=== PATIENT | male | born 1955 | race Caucasian/White ===

== ENCOUNTER 2024-12-06 12:58 | Inpatient (IN) | payer MEDICARE ==
[2024-12-06] MEDS: ONDANSETRON 4 MG/2 ML VIAL IVP STA (13:20)
--- NOTE | 2024-12-06 13:30 | ED ---
General Adult HPI - General Chief complaint: Chest Pain Stated complaint: Chest pain Time Seen by Provider: 12/06/24 13:00 Source: patient, EMS, RN notes reviewed, old records reviewed Mode of arrival: EMS Limitations: no limitations - History of Present Illness Initial comments: This is a 69-year-old male who presents to the emergency department with chest pain he describes it as pain in the center of his chest as a heavy pressure. Patient states it has been ongoing for about a half an hour. Patient states he called EMS when they arrived gave him nitroglycerin and took the pain away completely. Patient does not complain of any shortness of breath. Patient Nuys any fever chills or cough or Patient denies any radiation of the pain. Patient Nuys any nausea. Patient Nuys any risk factors. Patient currently only has a very slight pressure - Related Data Home Medications Medication Instructions Recorded Confirmed No Known Home Medications 12/06/24 12/06/24 Allergies Allergy/AdvReac Type Severity Reaction Status Date / Time No Known Allergies Allergy Verified 12/06/24 15:24 Review of Systems ROS Statement: Those systems with pertinent positive or pertinent negative responses have been documented in the HPI. ROS Other: All systems not noted in ROS Statement are negative. Past Medical History Past Medical History: No Reported History History of Any Multi-Drug Resistant Organisms: None Reported Past Surgical History: No Surgical Hx Reported Past Psychological History: No Psychological Hx Reported Smoking Status: Never smoker Past Alcohol Use History: None Reported Past Drug Use History: None Reported General Exam - General Exam Comments Initial Comments: GENERAL: Patient is well-developed and well-nourished. Patient is nontoxic and well- hydrated and is in mild distress. ENT: Neck is soft and supple. No significant lymphadenopathy is noted. Oropharynx is clear. Moist mucous membranes. Neck has full range of motion without eliciting any pain. EYES: The sclera were anicteric and conjunctiva were pink and moist. Extraocular movements were intact and pupils were equal round and reactive to light. Eyelids were unremarkable. PULMONARY: Unlabored respirations. Good breath sounds bilaterally. No audible rales r honchi or wheezing was noted. CARDIOVASCULAR: There is a regular rate and rhythm without any murmurs gallops or rubs. ABDOMEN: Soft and nontender with normal bowel sounds. No palpable organomegaly was noted. There is no palpable pulsatile mass. SKIN: Skin is clear with no lesions or rashes and otherwise unremarkable. NEUROLOGIC: Patient is alert and oriented x3. Cranial nerves II through XII are grossly intact. Motor and sensory are also intact. Normal speech, volume and content. Symmetrical smile. MUSCULOSKELETAL: Normal extremities with adequate strength and full range of motion. No lower extremity swelling or edema. No calf tenderness. LYMPHATICS: No significant lymphadenopathy is noted PSYCHIATRIC: Normal psychiatric evaluation. Limitations: no limitations Course Vital Signs 12/06/24 12/06/24 12/06/24 13:01 13:41 14:00 Temperature 98.2 F Pulse Rate 99 93 89 Respiratory 18 22 18 Rate Blood Pressure 166/102 168/85 144/85 O2 Sat by Pulse 96 99 99 Oximetry 12/06/24 12/06/24 12/06/24 15:03 16:04 17:13 Temperature Pulse Rate 83 89 103 H Respiratory 18 18 20 Rate Blood Pressure 160/89 169/86 181/100 O2 Sat by Pulse 98 98 98 Oximetry 12/06/24 18:00 Temperature Pulse Rate 98 Respiratory 16 Rate Blood Pressure 164/93 O2 Sat by Pulse 96 Oximetry Medical Decision Making - Medical Decision Making Use interpreted by myself and EKG shows sinus rhythm at 96 bpm NE interval is 131 QRS is 84 QT interval is 375 QTc is 428. Patient's EKG shows ST segment depression with T wave inversion in leads II, III and aVF as well as V3 through V6. Patient has Q waves inferiorly Was pt. sent in by a medical professional or institution ([facility], [employer], urgent care, hospital, or halfway...) When possible be specific @ -No Did you speak to anyone other than the patient for history (EMS, parent, family, police, friend...)? What history was obtained from this source @ -No Did you review nursing and triage notes (agree or disagree)? Why? @ -I reviewed and agree with nursing and triage notes Were old charts reviewed (outside hosp., previous admission, EMS record, old EK G, old radiological studies, urgent care reports/EKG's, halfway records)? Report findings @ -No old charts were reviewed Differential Diagnosis? @ -Differential Chest Pain: Stable Angina, Unstable Angina, STEMI, NSTEMI Aortic Dissection, Pneumothorax, Musculoskeletal, Esophageal Spasm GERD, Cholecystitis, Pancreatitis, Zoster, this is not meant to be an all-inclusive list. EKG interpreted by me (3pts min.). @ -As above X-rays interpreted by me (1pt min.). @ -Chest x-ray shows no acute abnormality CT interpreted by me (1pt min.). @ -None done U/S interpreted by me (1pt. min.). @ -None done What testing was considered but not performed or refused? (CT, X-rays, U/S, labs)? Why? @ -None What meds were considered but not given or refused? Why? @ -None Did you discuss the management of the patient with other professionals (professionals i.e. , PA, [employer], lab, RT, psych nurse, social media content specialist, men's garment fitter, teacher, juvenile detention officer, returned case inspector)? Give summary @ -I spoke with sound physicians and they agreed to admit the patient Was smoking cessation discussed for >3mins.? @ -No Was critical care preformed (if so, how long)? @ -35 minutes Were there social determinants of health that impacted care today? How? (Homelessness, low income, unemployed, alcoholism, drug addiction, transporta tion, low edu. Level, literacy, decrease access to med. care, nursing home, rehab)? @ -No Was there de-escalation of care discussed even if they declined (Discuss DNR or withdrawal of care, Hospice)? DNR status @ -No What co-morbidities impacted this encounter? (DM, HTN, Smoking, COPD, CAD, Cancer, CVA, ARF, Chemo, Hep., AIDS, mental health diagnosis, sleep apnea, morbid obesity)? @ -None Was patient admitted / discharged? Hospital course, mention meds given and route, prescriptions, significant lab abnormalities, going to OR and other pertinent info. @ -Patient's troponin came back mildly elevated patient was started on heparin. I spoke with sound physicians agreed admit the patient admit the patient wrote a bitting orders and patient will have a cardiology consult. Undiagnosed new problem with uncertain prognosis? @ -No Drug Therapy requiring intensive monitoring for toxicity (Heparin, Nitro, Insulin, Cardizem)? @ -No Were any procedures done? @ -No Diagnosis/symptom? @ -Unstable angina Acute, or Chronic, or Acute on Chronic? @ -Acute Uncomplicated (without systemic symptoms) or Complicated (systemic symptoms)? @ -Complicated Side effects of treatment? @ -No Exacerbation, Progression, or Severe Exacerbation? @ -No Poses a threat to life or bodily function? How? (Chest pain, USA, VT, pneumonia, PE, COPD, DKA, ARF, appy, cholecystitis, CVA, Diverticulitis, Homicidal, Suicidal, threat to staff... and all critical care pts) @ -Yes this could lead to an VT and endorgan dysfunction - Lab Data Result diagrams: 12/06/24 13:28 12/06/24 13:28 Lab Results 12/06/24 12/06/24 12/06/24 Range/Units 13:28 13:28 13:28 WBC 11.75 H (4.50-10.00) 10*3/uL RBC 4.05 L (4.40-5.60) 10*6/uL Hgb 13.2 (13.0-17.0) g/dL Hct 38.8 L (39.6-50.0) % MCV 95.8 (80.0-97.0) fL MCH 32.6 H (27.0-32.0) pg MCHC 34.0 (32.0-37.0) g/dL Plt Count 195 (140-440) 10*3/uL MPV 12.4 H (9.5-12.2) fL Immature Gran % (Auto) 0.7 % Neutrophils % 60.7 % Lymphocytes % 30.4 % Monocytes % 5.2 % Eosinophils % 2.2 % Basophils % 0.8 % Immature Gran # 0.08 H (0.00-0.04) 10*3/uL Neutrophils # 7.14 (1.80-7.70) 10*3/uL Lymphocytes # 3.57 (0.90-5.00) 10*3/uL Monocytes # 0.61 (0.20-1.00) 10*3/uL Eosinophils # 0.26 (0.04-0.35) 10*3/uL Basophils # 0.09 (0.00-0.10) 10*3/uL Manual Slide Review Performed Immature Plt Fraction 8.7 H (1.1-6.1) % RBC Morphology Normal PT (10.0-12.5) sec INR (<1.2) APTT (22.0-30.0) sec Sodium 138 (137-145) mmol/L Potassium 4.0 (3.5-5.1) mmol/L Chloride 109 H (98-107) mmol/L Carbon Dioxide 17 L (22-30) mmol/L Anion Gap 12 mmol/L BUN 11 (9-20) mg/dL Creatinine 1.04 (0.66-1.25) mg/dL Est GFR (CKD-EPI)AfAm 84 (>60 ml/min/1.73 sqM) Est GFR (CKD-EPI)NonAf 73 (>60 ml/min/1.73 sqM) Glucose 139 H (74-99) mg/dL Calcium 8.7 (8.4-10.2) mg/dL Magnesium 1.9 (1.6-2.3) mg/dL Total Bilirubin 0.7 (0.2-1.3) mg/dL AST 16 L (17-59) U/L ALT 19 (4-49) U/L Alkaline Phosphatase 86 (38-126) U/L Troponin I 0.087 H* (0.000-0.034) ng/mL Total Protein 7.2 (6.3-8.2) g/dL Albumin 4.1 (3.5-5.0) g/dL 12/06/24 12/06/24 Range/Units 16:17 17:36 WBC (4.50-10.00) 10*3/uL RBC (4.40-5.60) 10*6/uL Hgb (13.0-17.0) g/dL Hct (39.6-50.0) % MCV (80.0-97.0) fL MCH (27.0-32.0) pg MCHC (32.0-37.0) g/dL Plt Count (140-440) 10*3/uL MPV (9.5-12.2) fL Immature Gran % (Auto) % Neutrophils % % Lymphocytes % % Monocytes % % Eosinophils % % Basophils % % Immature Gran # (0.00-0.04) 10*3/uL Neutrophils # (1.80-7.70) 10*3/uL Lymphocytes # (0.90-5.00) 10*3/uL Monocytes # (0.20-1.00) 10*3/uL Eosinophils # (0.04-0.35) 10*3/uL Basophils # (0.00-0.10) 10*3/uL Manual Slide Review Immature Plt Fraction (1.1-6.1) % RBC Morphology PT 12.1 (10.0-12.5) sec INR 1.1 (<1.2) APTT 50.9 H (22.0-30.0) sec Sodium (137-145) mmol/L Potassium (3.5-5.1) mmol/L Chloride (98-107) mmol/L Carbon Dioxide (22-30) mmol/L Anion Gap mmol/L BUN (9-20) mg/dL Creatinine (0.66-1.25) mg/dL Est GFR (CKD-EPI)AfAm (>60 ml/min/1.73 sqM) Est GFR (CKD-EPI)NonAf (>60 ml/min/1.73 sqM) Glucose (74-99) mg/dL Calcium (8.4-10.2) mg/dL Magnesium (1.6-2.3) mg/dL Total Bilirubin (0.2-1.3) mg/dL AST (17-59) U/L ALT (4-49) U/L Alkaline Phosphatase (38-126) U/L Troponin I 7.600 H* (0.000-0.034) ng/mL Total Protein (6.3-8.2) g/dL Albumin (3.5-5.0) g/dL Disposition Clinical Impression: Unstable angina pectoris Disposition: ADMITTED IP TO THIS [facility] Time of Disposition: 18:20
[2024-12-06 13:36] LABS: Basophils # (A) 0.09 10*3/uL (0.00-0.10); Basophils % (A) 0.8 %; Eosinophils # (A) 0.26 10*3/uL (0.04-0.35); Eosinophils % (A) 2.2 %; HCT 38.8 % (39.6-50.0); HGB 13.2 g/dL (13.0-17.0); Immature Platelet Fraction 8.7 % (1.1-6.1); Lymphocytes # (A) 3.57 10*3/uL (0.90-5.00); Lymphocytes % (A) 30.4 %; MCH 32.6 pg (27.0-32.0); MCHC 34.0 g/dL (32.0-37.0); MCV 95.8 fL (80.0-97.0); Monocytes # (A) 0.61 10*3/uL (0.20-1.00); Monocytes % (A) 5.2 %; Neutrophils # (A) 7.14 10*3/uL (1.80-7.70); Neutrophils % (A) 60.7 %; RBC 4.05 10*6/uL (4.40-5.60); RDW 15.9 % (11.5-14.5); WBC 11.75 10*3/uL (4.50-10.00)
[2024-12-06] MEDS: ASPIRIN 81 MG PO STA (13:43)
[2024-12-06] MEDS: NITROGLYCERIN OINT 1 INCH/GM PACKET TOPICAL STA (13:43)
[2024-12-06 13:54] LABS: ALT 19 U/L (4-49); AST 16 U/L (17-59); African American GFR (CKD) 84 (>60 ml/min/1.73 sqM); Albumin 4.1 g/dL (3.5-5.0); Alkaline Phosphatase 86 U/L (38-126); Anion Gap 12 mmol/L; Blood Urea Nitrogen 11 mg/dL (9-20); Calcium 8.7 mg/dL (8.4-10.2); Carbon Dioxide 17 mmol/L (22-30); Chloride 109 mmol/L (98-107); Glucose 139 mg/dL (74-99); Magnesium 1.9 mg/dL (1.6-2.3); Non-African American GFR(CKD) 73 (>60 ml/min/1.73 sqM); Potassium 4.0 mmol/L (3.5-5.1); Sodium 138 mmol/L (137-145); Total Protein 7.2 g/dL (6.3-8.2)
--- NOTE | 2024-12-06 14:53 | XR ---
EXAMINATION TYPE: XR chest 2V DATE OF EXAM: 12/06/2024 2:15 PM COMPARISON: None CLINICAL INDICATION: Male, 69 years old with history of Chest Pain, , TECHNIQUE: PA and lateral views FINDINGS: Heart normal size. Mild hyperinflation. Mild interstitial prominence. No consolidation or pleural eff usion. IMPRESSION: COPD. No acute cardiopulmonary process. [facility], Workstation: [facility], 12/06/2024 2:51 PM
[2024-12-06 15:12] LABS: RBC Morphology Normal
[2024-12-06 15:13] LABS: Platelet Count 195 10*3/uL (140-440)
[2024-12-06] MEDS: HEPARIN SOD,PORK IN 0.45% NACL 25,000 UNIT in 0.45% NACL 1 250ML.BAG IV SCH (16:02)
[2024-12-06] MEDS: HEPARIN SODIUM 1,000 UN/ML (10ML VL) IV ONE (16:02)
--- NOTE | 2024-12-06 16:21 | P.HPIM ---
History of Present Illness H&P Date: 12/06/24 History of Presenting Illness: Patient is a very pleasant 69-year-old male with no reported past medical history, however reports he has not been seen by a medical provider at any time during his adulthood. Patient denies history of smoking, alcohol use, or drug use. He does report having a family history of kidney disease and heart disease, but states he is never had any issues or never required medical care. Patient presented to the emergency department today secondary to reports of chest pain. He reports approximately an hour prior to arrival he was picking up some takeout for lunch when he suddenly felt pain to his midsternal chest that felt like a severe heaviness. Patient reports he drove home as initially he thought maybe it was hunger pains or reflux but states the pain continued as a constant pressure/heaviness so he took 2 Silvia aspirin and called EMS. Patient reports he was given 3 doses of sublingual nitroglycerin in the ambulance and the pain significantly improved and now only remains as a slight pressure/ache. He denies having any associated symptoms including headache, lightheadedness, dizziness, diaphoresis, palpitations, shortness of breath, cough or congestion, abdominal pain, nausea, vomiting, or experiencing any numbness/tingling/weakness/swelling in his extremities. Upon arrival to our facility, patient underwent evaluation in the emergency department. Vital signs upon arrival show blood pressure 166/102, heart rate 99, respiratory rate 18, temp 98.2 F, and SpO2 of 96% on room air. EKG completed showing normal sinus rhythm at 96 bpm with T wave inversion in leads II, III, aVF and V3 through V6. Chest x-ray completed showing mild hyperinflation otherwise negative for acute cardiopulmonary process. Labs completed and reviewed. CBC showing leukocytosis with WBC count of 11.75. BMP showing high anion gap metabolic acidosis with chloride of 109, bicarb of 17, and anion gap of 12. Blood glucose was 139. Calcium 8.7. Magnesium 1.9. Liver profile unremarkable. Troponin was elevated at 0.087. Review of systems: Pertinent positives and negatives as discussed in HPI, a complete review of systems was performed and all other systems are negative. Physical exam: Vital signs reviewed and stable. General: Nontoxic, no distress and appears stated age. Derm: Skin warm and dry, normal coloration for ethnicity. Head: Atraumatic, normocephalic and symmetric. Eyes: EOM's intact, no lid lag, and anicteric sclera Mouth: no lip lesions, mucus membranes moist Cardiovascular: regular rate and rhythm with normal S1S2, no murmur, positive posterior tibial pulses bilaterally, and cap refill < 2 seconds. Lungs: Respirations even, regular, and unlabored on room air. Lungs CTA bilaterally, no rhonchi, no rales, no wheezing, and no accessory muscle usage. Abdominal: soft, nontender to palpation, no guarding, no appreciable orga nomegaly Ext: ROM intact. No gross muscle atrophy, no edema, no contractures Neuro: Speech clear, face symmetrical and CN II-XII grossly intact with no noted focal neuro deficits Psych: Alert and oriented to person, place, time, and situation. Appropriate and pleasant affect. Assessment and Plan of Care: Chest pain, unstable angina. Rule out acute coronary event Elevated troponin Hypertension Leukocytosis, likely reactive secondary to above High anion gap metabolic acidosis -Cardiology consulted, appreciate recommendations -Telemetry monitoring -Trend troponins -Continue low intensity heparin infusion with close monitoring of PTT every 6 hours for goal therapeutic range of 45 to 79 seconds. -Sublingual nitro 0.4 mg every 5 minutes as needed for chest pain -Cardiac diet, NPO at midnight -Aspirin 81 mg daily, atorvastatin 80 mg daily, and patient started on losartan 25 mg daily. -Lipid profile and hemoglobin A1c with a.m. labs. -Echocardiogram to be completed Data and imaging reviewed: As stated above in HPI CODE STATUS: Full code DVT prophylaxis: Heparin infusion Discussed with: Patient, patient's family members at bedside, and ED physician Anticipated discharge date: Pending clinical course Anticipated discharge place: Home Patient was seen independently by Nurse Practitioner. This document was prepared using [employer] dictation software. Please allow for errors in driver material handler while rare they do occur. Manfred Alfaro NP rendered care for this patient independently, reviewed the findings and plan as documented in the note above and agree with plan. I did not physically speak with or examine the patient on this date. Past Medical History Past Medical History: No Reported History History of Any Multi-Drug Resistant Organisms: None Reported Past Surgical History: No Surgical Hx Reported Past Psychological History: No Psychological Hx Reported Smoking Status: Never smoker Past Alcohol Use History: None Reported Past Drug Use History: None Reported Medications and Allergies Home Medications Medication Instructions Recorded Confirmed Type No Known Home Medications 12/06/24 12/06/24 History Allergies Allergy/AdvReac Type Severity Reaction Status Date / Time No Known Allergies Allergy Verified 12/06/24 15:24 Physical Exam Vitals: Vital Signs Temp Pulse Resp BP Pulse Ox 12/06/24 16:04 89 18 169/86 98 12/06/24 15:03 83 18 160/89 98 12/06/24 14:00 89 18 144/85 99 12/06/24 13:41 93 22 168/85 99 12/06/24 13:01 98.2 F 99 18 166/102 96 Intake and Output 12/06/24 12/06/24 12/06/24 06:59 14:59 22:59 Other: Weight 77.111 kg Results CBC & Chem 7: 12/06/24 13:28 12/06/24 13:28 Labs: Abnormal Lab Results - Last 24 Hours (Table) 12/06/24 12/06/24 12/06/24 Range/Units 13:28 13:28 13:28 WBC 11.75 H (4.50-10.00) 10*3/uL RBC 4.05 L (4.40-5.60) 10*6/uL Hct 38.8 L (39.6-50.0) % MCH 32.6 H (27.0-32.0) pg MPV 12.4 H (9.5-12.2) fL Immature Gran # 0.08 H (0.00-0.04) 10*3/uL Immature Plt Fraction 8.7 H (1.1-6.1) % Chloride 109 H (98-107) mmol/L Carbon Dioxide 17 L (22-30) mmol/L Glucose 139 H (74-99) mg/dL AST 16 L (17-59) U/L Troponin I 0.087 H* (0.000-0.034) ng/mL
[2024-12-06] MEDS ORDERED: HYDROcodone/APAP 5-325MG 1 EACH TAB PO PRN (16:22)
[2024-12-06] MEDS ORDERED: ACETAMINOPHEN TAB 325 MG TAB PO PRN (16:22)
[2024-12-06] MEDS ORDERED: ONDANSETRON 4 MG/2 ML VIAL IVP PRN (16:22)
[2024-12-06] MEDS ORDERED: NALOXONE 0.4 MG/ML 1 ML VIAL IVP PRN (16:22)
[2024-12-06] MEDS ORDERED: MELATONIN 3 MG TABLET PO PRN (16:22)
[2024-12-06] MEDS ORDERED: NITROGLYCERIN SL TABS 0.4 MG TAB SUBLINGUAL PRN ×2 (16:22→18:21)
[2024-12-06 16:50] LABS: INR 1.1 (<1.2); Partial Thromboplastin Time 50.9 sec (22.0-30.0); Prothrombin Time 12.1 sec (10.0-12.5)
[2024-12-06] MEDS: ATORVASTATIN 80 MG TAB PO ONE (18:03)
[2024-12-06] MEDS: METOPROLOL TARTRATE 50 MG TAB PO SCH (19:20)
[2024-12-06] MEDS: LOSARTAN 25 MG TAB PO STA (19:22)
[2024-12-07 07:22] LABS: HCT 35.4 % (39.6-50.0); HGB 11.8 g/dL (13.0-17.0); MCH 32.6 pg (27.0-32.0); MCHC 33.3 g/dL (32.0-37.0); MCV 97.8 fL (80.0-97.0); Platelet Count 206 10*3/uL (140-440); RBC 3.62 10*6/uL (4.40-5.60); RDW 16.0 % (11.5-14.5); WBC 8.40 10*3/uL (4.50-10.00)
[2024-12-07 07:39] LABS: ALT 23 U/L (4-49); AST 38 U/L (17-59); African American GFR (CKD) 79 (>60 ml/min/1.73 sqM); Albumin 3.5 g/dL (3.5-5.0); Alkaline Phosphatase 76 U/L (38-126); Anion Gap 7 mmol/L; Blood Urea Nitrogen 14 mg/dL (9-20); Calcium 8.6 mg/dL (8.4-10.2); Carbon Dioxide 23 mmol/L (22-30); Chloride 109 mmol/L (98-107); Glucose 108 mg/dL (74-99); Magnesium 2.1 mg/dL (1.6-2.3); Non-African American GFR(CKD) 68 (>60 ml/min/1.73 sqM); Potassium 4.3 mmol/L (3.5-5.1); Sodium 139 mmol/L (137-145); Total Protein 6.5 g/dL (6.3-8.2)
[2024-12-07] MEDS ORDERED: ALPRAZolam 0.25 MG TAB PO PRN (08:53)
[2024-12-07] MEDS ORDERED: ALPRAZolam 0.5 MG TAB PO PRN (08:53)
[2024-12-07] MEDS ORDERED: NITROGLYCERIN SL TABS 0.4 MG TAB SUBLINGUAL PRN (08:53)
[2024-12-07] MEDS ORDERED: ASPIRIN 325 MG TAB PO SCH (09:00)
[2024-12-07] MEDS: ASPIRIN 325 MG TAB PO STA (09:48)
[2024-12-07] MEDS: ATORVASTATIN 80 MG TAB PO STA (09:48)
--- NOTE | 2024-12-07 10:19 | P.CRDCN ---
History of Present Illness History of present illness: HISTORY OF PRESENT ILLNESS: This is a 69-year-old male with no significant past medical history. 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 Additionally he has not been to a doctor in quite a few years.. We have been asked to see the patient in consultation for non-STEMI. Patient examined at the bedside. To the hospital with chief complaint of chest discomfort. Patient states he was watching the news yesterday when he began to have chest discomfort. He describes it as a sharp shooting pain right through his chest. He does report he has been having some shortness of breath recently with activity and working in the yard. However he denied any shortness of breath yesterday. He does also report that the ER doctor mentioned to him yesterday that he was diaphoretic in the ER. He is a non-smoker. He denies any drug use or alcohol use. He does report a family history of CAD and states that his brother has had a history of [place] and CAD. DIAGNOSTICS: - EKG reveals sinus mechanism with no signs of acute ischemia. - Chest xray COPD. No acute cardiopulmonary process. - Laboratory data: Troponin 0.087. 7.600. 11.300 - Current home cardiac medications include none. - No previous echocardiogram, stress test, or cardiac catheterization available in EMR for review REVIEW OF SYSTEMS: At the time of my exam: CONSTITUTIONAL: Denies fever or chills. HEENT: Denies blurred vision, vision changes, or eye pain. Denies hemoptysis CARDIOVASCULAR: Denies chest pain. Denies orthopnea. Denies PND. Denies palpitations RESPIRATORY: Denies shortness of breath. GASTROINTESTINAL: Denies abdominal pain. Denies nausea or vomiting. HEMATOLOGIC: Denies bleeding disorders. GENITOURINARY: Denies any blood in urine. SKIN: Denies pruitis. Denies rash. PHYSICAL EXAM: VITAL SIGNS: Reviewed. GENERAL: Well-developed in no acute distress. HEENT: Head is normocephalic. Pupils are equal, round. Sclerae anicteric. Mucous membranes of the mouth are moist. Neck supple. No JVD or thyromegaly LUNGS: Respirations even and unlabored. Lungs essentially clear to auscultation bilaterally. HEART: Regular rate and rhythm. S1 and S2 heard. ABDOMEN: Soft. Nondistended. Nontender. EXTREMITIES: Normal range of motion. No clubbing or cyanosis. Peripheral pulses intact. No lower extremity edema NEUROLOGIC: Awake and alert. Oriented x 3. ASSESSMENT: Non-STEMI Prediabetes, hemoglobin A1c 6.1 Hypertension Obesity: BMI 31.2 Family history of CAD PLAN: Continue IV heparin Continue aspirin, Lipitor, metoprolol, and losartan Obtain 2D echo to assess cardiac structure and function Obtain lipid panel patient to undergo Dr. Brooks Further recommendations pending patient course Nurse practitioner note has been reviewed by physician. Signing provider agrees with the documented findings, assessment, and plan of care documented by TRAINING AND DEVELOPMENT HEAD as a scribe. Past Medical History Past Medical History: No Reported History History of Any Multi-Drug Resistant Organisms: None Reported Past Surgical History: No Surgical Hx Reported Past Psychological History: No Psychological Hx Reported Smoking Status: Former smoker Past Alcohol Use History: None Reported Past Drug Use History: None Reported Medications and Allergies Home Medications Medication Instructions Recorded Confirmed Type No Known Home Medications 12/06/24 12/06/24 History Allergies Allergy/AdvReac Type Severity Reaction Status Date / Time No Known Allergies Allergy Verified 12/06/24 15:24 Physical Exam Vitals: Vital Signs Temp Pulse Pulse Resp BP BP BP 12/07/24 07:42 99.2 F 71 16 172/84 12/07/24 04:00 97.6 F 70 17 128/85 12/07/24 00:00 71 16 129/72 12/06/24 21:25 98.7 F 98 22 205/124 208/130 12/06/24 20:39 90 18 167/82 12/06/24 18:00 98 16 164/93 12/06/24 17:13 103 H 20 181/100 12/06/24 16:04 89 18 169/86 12/06/24 15:03 83 18 160/89 12/06/24 14:00 89 18 144/85 12/06/24 13:41 93 22 168/85 12/06/24 13:01 98.2 F 99 18 166/102 Pulse Ox 12/07/24 07:42 95 12/07/24 04:00 99 12/07/24 00:00 98 12/06/24 21:25 98 12/06/24 20:39 97 12/06/24 18:00 96 12/06/24 17:13 98 12/06/24 16:04 98 12/06/24 15:03 98 12/06/24 14:00 99 12/06/24 13:41 99 12/06/24 13:01 96 Intake and Output 12/06/24 12/07/24 12/07/24 22:59 06:59 14:59 Intake Total 540 76.183 Output Total 1 500 Balance 539 -423.817 Intake: Intake, IV Titration 76.183 Amount Heparin Sod,Pork in 0.45% 76.183 NaCl 25,000 unit In 0.45 % NaCl 1 250ml.bag @ 12 UNITS/KG/HR 9.253 mls/hr IV .Q24H [facility] Rx#: [id number] Oral 540 Output: Urine 1 500 Other: Voiding Method Toilet Toilet Urinal Urinal # Voids 1 Weight 77.111 kg 98.5 kg Results 12/07/24 07:02 12/07/24 07:02 Cardiac Enzymes 12/06/24 12/06/24 12/06/24 Range/Units 13:28 13:28 17:36 AST 16 L (17-59) U/L Troponin I 0.087 H* 7.600 H* (0.000-0.034) ng/mL 12/07/24 12/07/24 Range/Units 07:02 07:02 AST 38 (17-59) U/L Troponin I 11.300 H* (0.000-0.034) ng/mL Coagulation 12/06/24 12/06/24 12/07/24 Range/Units 16:17 23:17 07:02 PT 12.1 (10.0-12.5) sec APTT 50.9 H 27.0 31.5 H (22.0-30.0) sec CBC 12/06/24 12/07/24 Range/Units 13:28 07:02 WBC 11.75 H 8.40 (4.50-10.00) 10*3/uL RBC 4.05 L 3.62 L (4.40-5.60) 10*6/uL Hgb 13.2 11.8 L (13.0-17.0) g/dL Hct 38.8 L 35.4 L (39.6-50.0) % Plt Count 195 206 (140-440) 10*3/uL Comprehensive Metabolic Panel 12/06/24 12/07/24 Range/Units 13:28 07:02 Sodium 138 139 (137-145) mmol/L Potassium 4.0 4.3 (3.5-5.1) mmol/L Chloride 109 H 109 H (98-107) mmol/L Carbon Dioxide 17 L 23 (22-30) mmol/L BUN 11 14 (9-20) mg/dL Creatinine 1.04 1.09 (0.66-1.25) mg/dL Glucose 139 H 108 H (74-99) mg/dL Calcium 8.7 8.6 (8.4-10.2) mg/dL AST 16 L 38 (17-59) U/L ALT 19 23 (4-49) U/L Alkaline Phosphatase 86 76 (38-126) U/L Total Protein 7.2 6.5 (6.3-8.2) g/dL Albumin 4.1 3.5 (3.5-5.0) g/dL Current Medications Generic Name Dose Route Start Last Admin Trade Name Freq PRN Reason Stop Dose Admin Acetaminophen 650 mg 12/06/24 16:22 Acetaminophen Tab 325 Mg Tab PO Q6HR PRN Mild Pain or Fever > 100.5 Hydrocodone Bitart/Acetaminophen 1 each 12/06/24 16:22 Hydrocodone/Apap 5-325mg 1 Each Tab PO Q4HR PRN Moderate Pain (Scale 4 to 6) Alprazolam 0.25 mg 12/07/24 08:53 Alprazolam 0.25 Mg Tab PO Q6HR PRN Mild Anxiety Alprazolam 0.5 mg 12/07/24 08:53 Alprazolam 0.5 Mg Tab PO Q6HR PRN Moderate Anxiety Aspirin 81 mg 12/07/24 09:00 Aspirin 81 Mg PO DAILY [facility] Atorvastatin Calcium 80 mg 12/07/24 09:00 Atorvastatin 80 Mg Tab PO DAILY [facility] Heparin Sodium/Sodium Chloride 250 mls @ 9.253 mls/hr 12/06/24 16:00 12/07/24 00:16 25,000 unit/ Sodium Chloride IV 15 units/kg/hr .Q24H [facility] 11.567 mls/hr Titration Protocol 12 UNITS/KG/HR Heparin Sodium (Porcine) 10, 1,001 mls @ 999 mls/hr 12/08/24 07:00 000 unit/ Sodium Chloride IRRIGATION 12/08/24 23:00 ONCE PRN INTRA-OP Heparin Sodium (Porcine) 2,500 250.5 mls @ 250 mls/hr 12/08/24 07:00 unit/ Sodium Chloride IRRIGATION 12/08/24 23:00 ONCE PRN INTRA-OP Sodium Chloride 1,000 ml/ IV 1,000 mls @ 98.5 mls/hr 12/07/24 09:00 Solution IV .[id number] [facility] 1 ML/KG/HR Losartan Potassium 25 mg 12/07/24 09:00 Losartan 25 Mg Tab PO DAILY [facility] Melatonin 3 mg 12/06/24 16:22 Melatonin 3 Mg Tablet PO HS PRN Insomnia Metoprolol Tartrate 50 mg 12/06/24 20:00 12/06/24 19:20 Metoprolol Tartrate 50 Mg Tab PO 50 mg BID [facility] Administration Naloxone HCl 0.2 mg 12/06/24 16:22 Naloxone 0.4 Mg/Ml 1 Ml Vial IVP Q2M PRN Opioid Reversal Nitroglycerin 0.4 mg 12/06/24 16:22 Nitroglycerin Sl Tabs 0.4 Mg Tab SUBLINGUAL Q5M PRN Chest Pain Nitroglycerin 0.4 mg 12/07/24 08:53 Nitroglycerin Sl Tabs 0.4 Mg Tab SUBLINGUAL Q5M PRN Chest Pain Ondansetron HCl 4 mg 12/06/24 16:22 Ondansetron 4 Mg/2 Ml Vial IVP Q8HR PRN Nausea And Vomiting Intake and Output 12/06/24 12/07/24 12/07/24 22:59 06:59 14:59 Intake Total 540 76.183 Output Total 1 500 Balance 539 -423.817 Intake: Intake, IV Titration 76.183 Amount Heparin Sod,Pork in 0.45% 76.183 NaCl 25,000 unit In 0.45 % NaCl 1 250ml.bag @ 12 UNITS/KG/HR 9.253 mls/hr IV .Q24H [facility] Rx#: [id number] Oral 540 Output: Urine 1 500 Other: Voiding Method Toilet Toilet Urinal Urinal # Voids 1 Weight 77.111 kg 98.5 kg 12/07/24 07:02 12/07/24 07:02
[2024-12-07] MEDS: LIDOCAINE 1% INJ 10MG/ML (20 ML MDV) SQ ONE (10:25)
[2024-12-07] MEDS: fentaNYL (PF) 50 MCG/1 ML VIAL IVP ONE (10:29)
[2024-12-07] MEDS: VERAPAMIL SYRINGE (5 MG/10 ML) IVP ONE (10:29)
[2024-12-07] MEDS: MIDAZOLAM 2 MG/2 ML VIAL IVP ONE (10:29)
[2024-12-07] MEDS: HEPARIN SODIUM 1,000 UN/ML (10ML VL) IVP ONE ×2 (10:30)
[2024-12-07] MEDS: CLOPIDOGREL 75 MG TAB PO ONE (10:40)
[2024-12-07] MEDS: IOPAMIDOL-370 100ML BTL INJ ONE (10:40)
[2024-12-07] MEDS: IV FLUID CONTINUATION 900 ML IV ONE (10:41)
--- NOTE | 2024-12-07 11:01 | CA ---
Transthoracic Echo Report Name: Rohith Hines Age: 69 Gender: M : 1955 Exam Date: 12/06/2024 17:23 Exam Location: [place] [facility] Ht (in): 70 Wt (lb): 170 Ordering Physician: Manfred Alfaro Attending/Referring Phys: Health Education Assistant Emily Ventura RDCS Procedure CPT: Indications: CP, elevated troponin, EKG changes Cardiac Hx: Technical Quality: Fair Contrast 1: Total Dose (mL): Contrast 2: Total Dose (mL): MEASUREMENTS (Male / Female) Normal Values 2D ECHO LV Diastolic Diameter PLAX 5.0 cm 4.2 - 5.9 / 3.9 - 5.3 cm LV Systolic Diameter PLAX 3.3 cm IVS Diastolic Thickness 1.2 cm 0.6 - 1.0 / 0.6 - 0.9 cm LVPW Diastolic Thickness 1.2 cm 0.6 - 1.0 / 0.6 - 0.9 cm LV Relative Wall Thickness 0.5 RV Internal Dim ED PLAX 3.0 cm LA Systolic Diameter LX 3.3 cm 3.0 - 4.0 / 2.7 - 3.8 cm LV Diastolic Volume MOD 4C 88.1 cm??? LV Systolic Volume MOD 4C 43.6 cm??? LV Ejection Fraction MOD 4C 50.6 % LV Cardiac Index MOD 4C 2299.7 cm???/min???m??? LV Diastolic Length 4C 9.1 cm LV Systolic Length 4C 7.8 cm LV Diastolic Volume MOD 2C 91.5 cm??? LV Systolic Volume MOD 2C 33.7 cm??? LV Ejection Fraction MOD 2C 63.2 % LV Cardiac Index MOD 2C 2981.7 cm???/min???m??? LV Diastolic Length 2C 9.3 cm LV Systolic Length 2C 7.5 cm LA Volume 54.7 cm??? 18 - 58 / 22 - 52 cm??? LA Volume Index 28.0 cm???/m??? 16 - 28 cm???/m??? M-MODE Aortic Root Diameter MM 3.2 cm AV Cusp Separation MM 2.2 cm DOPPLER MV Area PHT 4.3 cm??? Mitral E Point Velocity 98.6 cm/s Mitral A Point Velocity 116.1 cm/s Mitral E to A Ratio 0.8 MV Deceleration Time 176.4 ms TR Peak Velocity 318.5 cm/s TR Peak Gradient 40.6 mmHg Right Ventricular Systolic Press 45.6 mmHg FINDINGS Left Ventricle Left ventricular ejection fraction is estimated at 55-60 %. Left ventricular cavity size normal. Mildly increased septal wall thickness. No obvious regional wall motion abnormalities. Right Ventricle Normal right ventricular size. Mild to Moderate pulmonary hypertension. Right Atrium Normal right atrial size. No right atrial thrombus or mass seen. Left Atrium Normal left atrial size. No left atrial thrombus or mass present. Mitral Valve Structurally normal mitral valve. No mitral stenosis, regurgitation or prolapse. Aortic Valve Trileaflet aortic valve. No aortic valve stenosis or regurgitation. Tricuspid Valve Structurally normal tricuspid valve. Mild tricuspid regurgitation. Pulmonic Valve Pulmonic valve not well visualized. No pulmonic regurgitation. Pericardium No pericardial effusion. Aorta Normal size aortic root and proximal ascending aorta. CONCLUSIONS LVEF 55 to 60% No obvious regional wall motion abnormality Normal RV size and systolic function Moderate pulmonary hypertension with RVSP of 45 mmHg Mild tricuspid regurgitation Previewed by: Dr Vicente Day (Electronically Signed) Final Date: 07 December 2024 11:00
[2024-12-07] MEDS: ATORVASTATIN 80 MG TAB PO SCH (12:52)
[2024-12-07] MEDS: ASPIRIN 81 MG PO SCH (12:52)
[2024-12-07] MEDS: LOSARTAN 25 MG TAB PO SCH (13:09)
[2024-12-07] MEDS: SODIUM CHLORIDE 0.9% 1,000 ML in EMPTY BAG 1 BAG IV SCH (13:11)
--- NOTE | 2024-12-07 13:30 | P.PN ---
Subjective Progress Note Date: 12/07/24 Hospital course: Patient is a very pleasant 69-year-old male with no reported past medical history, however reports he has not been seen by a medical provider at any time during his adulthood. Patient denies history of smoking, alcohol use, or drug use. He does report having a family history of kidney disease and heart disease, but states he is never had any issues or never required medical care. Patient presented to the emergency department today secondary to reports of chest pain. He reports approximately an hour prior to arrival he was picking up some takeout for lunch when he suddenly felt pain to his midsternal chest that felt like a severe heaviness. Patient reports he drove home as initially he thought maybe it was hunger pains or reflux but states the pain continued as a constant pressure/heaviness so he took 2 Silvia aspirin and called EMS. Patient reports he was given 3 doses of sublingual nitroglycerin in the ambulance and the pain significantly improved and now only remains as a slight pressure/ache. He denies having any associated symptoms including headache, lightheadedness, dizziness, diaphoresis, palpitations, shortness of breath, cough or congestion, abdominal pain, nausea, vomiting, or experiencing any numbness/tingling/weakness/swelling in his extremities. Upon arrival to our facility, patient underwent evaluation in the emergency department. Vital signs upon arrival show blood pressure 166/102, heart rate 99, respiratory rate 18, temp 98.2 F, and SpO2 of 96% on room air. EKG completed showing normal sinus rhythm at 96 bpm with T wave inversion in leads II, III, aVF and V3 through V6. Chest x-ray completed showing mild hyperinflation otherwise negative for acute cardiopulmonary process. Labs completed and reviewed. CBC showing leukocytosis with WBC count of 11.75. BMP showing high anion gap metabolic acidosis with chloride of 109, bicarb of 17, and anion gap of 12. Blood glucose was 139. Calcium 8.7. Magnesium 1.9. Liver profile unremarkable. Troponin was elevated at 0.087. Patient was started on low intensity heparin infusion for unstable angina and admitted under our services with consultation to cardiology. Troponins were trended resulting at 0.087, 7.600, and 11.300. Physical exam: Patient was seen and fully evaluated upon return from cardiac cath. TR band remains in place to right wrist, no hematoma or active bleeding noted. Patient reports mild chest discomfort currently rated 1/10 at this time stating just feels like a residual light ache. Is having any headache, lightheadedness, dizziness, changes in vision or hearing, palpitations, shortness of breath, nausea, vomiting, or any other complaints at this time. Vital signs reviewed and stable. General: Nontoxic, no distress and appears stated age. Derm: Skin warm and dry, normal coloration for ethnicity. Head: Atraumatic, normocephalic and symmetric. Eyes: EOM's intact, no lid lag, and anicteric sclera Mouth: no lip lesions, mucus membranes moist Cardiovascular: regular rate and rhythm with normal S1S2, no murmur, positive posterior tibial pulses bilaterally, and cap refill < 2 seconds. Lungs: Respirations even, regular, and unlabored on room air. Lungs CTA bilaterally, no rhonchi, no rales, no wheezing, and no accessory muscle usage. Abdominal: soft, nontender to palpation, no guarding, no appreciable organomegaly Ext: ROM intact. No gross muscle atrophy, no edema, no contractures Neuro: Speech clear, face symmetrical and CN II-XII grossly intact with no noted focal neuro deficits Psych: Alert and oriented to person, place, time, and situation. Appropriate and pleasant affect. Assessment and Plan of Care: NSTEMI Unstable angina Hypertension Prediabetes with hemoglobin A1c of 6.1%. Leukocytosis, likely reactive secondary to above and resolved High anion gap metabolic acidosis -Cardiology following and took patient for cardiac catheterization this morning. -Telemetry monitoring -Troponins were trended resulting at 0.087, 7.600, and 11.300. -Continue low intensity heparin infusion with close monitoring of PTT every 6 hours for goal therapeutic range of 45 to 79 seconds. -Sublingual nitro 0.4 mg every 5 minutes as needed for chest pain -Aspirin 81 mg daily, atorvastatin 80 mg daily, and patient started on losartan 25 mg daily and metoprolol 50 mg twice daily. -Lipid profile pending and hemoglobin A1c slightly elevated at 6.1%. -Echocardiogram to be completed Data and imaging reviewed: Labs reviewed. Troponins were trended resulting at 0.087, 7.600, and 11.300. CBC showing resolution of leukocytosis with WBC count decreasing to 8.40 and mild macrocytic anemia with hemoglobin of 11.8. Coagulation profile showing subtherapeutic PTT of 31.5. BMP showing improvement of high anion gap metabolic acidosis with chloride of 109, bicarb of 23, and anion gap of 7. Blood glucose was 108. Calcium 8.6. Magnesium 2.1. Liver profile unremarkable. Vital signs reviewed. Blood pressure 172/84, heart rate 71, respiratory rate 16, temp 99.2 F, and SpO2 of 95% on room air. CODE STATUS: Full code DVT prophylaxis: Heparin infusion Anticipated discharge date: Pending clinical course Anticipated discharge place: Home Patient was seen independently by Nurse Practitioner. This document was prepared using [employer] dictation software. Please allow for errors in horseback riding instructor while rare they do occur. Manfred Alfaro NP rendered care for this patient independently, reviewed the findings and plan as documented in the note above and agree with plan. I did not physically speak with or examine the patient on this date. Objective - Vital Signs Vital signs: Vital Signs Temp 99.2 F 12/07/24 07:42 Pulse 71 12/07/24 07:42 Resp 16 12/07/24 07:42 BP 172/84 12/07/24 07:42 Pulse Ox 95 12/07/24 07:42 FiO2 Intake & Output 12/06/24 12/07/24 12/07/24 18:59 06:59 18:59 Intake Total 540 76.183 Output Total 1 500 Balance 539 -423.817 Weight 77.111 kg 98.5 kg Intake: Intake, IV Titration 76.183 Amount Heparin Sod,Pork in 0.45% 76.183 NaCl 25,000 unit In 0.45 % NaCl 1 250ml.bag @ 12 UNITS/KG/HR 9.253 mls/hr IV .Q24H [facility] Rx#: [id number] Oral 540 Output: Urine 1 500 Other: Voiding Method Toilet Urinal # Voids 1 - Labs CBC & Chem 7: 12/07/24 07:02 12/07/24 07:02 Labs: Abnormal Lab Results - Last 24 Hours (Table) 12/06/24 12/06/24 12/06/24 Range/Units 13:28 13:28 13:28 WBC 11.75 H (4.50-10.00) 10*3/uL RBC 4.05 L (4.40-5.60) 10*6/uL Hgb (13.0-17.0) g/dL Hct 38.8 L (39.6-50.0) % MCV (80.0-97.0) fL MCH 32.6 H (27.0-32.0) pg MPV 12.4 H (9.5-12.2) fL Immature Gran # 0.08 H (0.00-0.04) 10*3/uL Immature Plt Fraction 8.7 H (1.1-6.1) % APTT (22.0-30.0) sec Chloride 109 H (98-107) mmol/L Carbon Dioxide 17 L (22-30) mmol/L Glucose 139 H (74-99) mg/dL Hemoglobin A1c (<=6.0) % AST 16 L (17-59) U/L Troponin I 0.087 H* (0.000-0.034) ng/mL 12/06/24 12/06/24 12/06/24 Range/Units 16:17 17:08 17:36 WBC (4.50-10.00) 10*3/uL RBC (4.40-5.60) 10*6/uL Hgb (13.0-17.0) g/dL Hct (39.6-50.0) % MCV (80.0-97.0) fL MCH (27.0-32.0) pg MPV (9.5-12.2) fL Immature Gran # (0.00-0.04) 10*3/uL Immature Plt Fraction (1.1-6.1) % APTT 50.9 H (22.0-30.0) sec Chloride (98-107) mmol/L Carbon Dioxide (22-30) mmol/L Glucose (74-99) mg/dL Hemoglobin A1c 6.1 H (<=6.0) % AST (17-59) U/L Troponin I 7.600 H* (0.000-0.034) ng/mL 12/07/24 12/07/24 12/07/24 Range/Units 07:02 07:02 07:02 WBC (4.50-10.00) 10*3/uL RBC 3.62 L (4.40-5.60) 10*6/uL Hgb 11.8 L (13.0-17.0) g/dL Hct 35.4 L (39.6-50.0) % MCV 97.8 H (80.0-97.0) fL MCH 32.6 H (27.0-32.0) pg MPV (9.5-12.2) fL Immature Gran # (0.00-0.04) 10*3/uL Immature Plt Fraction (1.1-6.1) % APTT (22.0-30.0) sec Chloride 109 H (98-107) mmol/L Carbon Dioxide (22-30) mmol/L Glucose 108 H (74-99) mg/dL Hemoglobin A1c (<=6.0) % AST (17-59) U/L Troponin I 11.300 H* (0.000-0.034) ng/mL // Range/Units 07:02 WBC (4.50-10.00) 10*3/uL RBC (4.40-5.60) 10*6/uL Hgb (13.0-17.0) g/dL Hct (39.6-50.0) % MCV (80.0-97.0) fL MCH (27.0-32.0) pg MPV (9.5-12.2) fL Immature Gran # (0.00-0.04) 10*3/uL Immature Plt Fraction (1.1-6.1) % APTT 31.5 H (22.0-30.0) sec Chloride (98-107) mmol/L Carbon Dioxide (22-30) mmol/L Glucose (74-99) mg/dL Hemoglobin A1c (<=6.0) % AST (17-59) U/L Troponin I (0.000-0.034) ng/mL
[2024-12-07] MEDS ORDERED: HEPARIN SODIUM,PORCINE/D5W 25,000 UNIT in EMPTY BAG 1 BAG IV SCH (14:15)
[2024-12-07 15:49] LABS: Cholesterol 178.00 mg/dL (0.00-200.00); HDL Cholesterol 43.80 mg/dL (40.00-60.00); LDL Cholesterol,Calculated 114.8 mg/dL (0.0-131.0); Triglycerides 96.90 mg/dL (0.00-149.00); VLDL Calculation 19.38 mg/dL (5.00-40.00)
[2024-12-08 03:16] VITALS: TEMP 98.2
[2024-12-08] MEDS ORDERED: HEPARIN SODIUM,PORCINE 10,000 UNIT in SODIUM CHLORIDE 0.9% 1,000 ML IRRIGATION PRN (07:00)
[2024-12-08] MEDS ORDERED: HEPARIN SODIUM,PORCINE (1 ML) 2,500 UNIT in SODIUM CHLORIDE 0.9% 250 ML IRRIGATION PRN (07:00)
[2024-12-08 07:08] LABS: HCT 35.4 % (39.6-50.0); HGB 11.7 g/dL (13.0-17.0); MCH 32.1 pg (27.0-32.0); MCHC 33.1 g/dL (32.0-37.0); MCV 97.0 fL (80.0-97.0); Platelet Count 210 10*3/uL (140-440); RBC 3.65 10*6/uL (4.40-5.60); RDW 16.3 % (11.5-14.5); WBC 9.12 10*3/uL (4.50-10.00)
[2024-12-08 07:17] LABS: African American GFR (CKD) 80 (>60 ml/min/1.73 sqM); Anion Gap 9 mmol/L; Blood Urea Nitrogen 15 mg/dL (9-20); Calcium 8.6 mg/dL (8.4-10.2); Carbon Dioxide 20 mmol/L (22-30); Chloride 109 mmol/L (98-107); Glucose 87 mg/dL (74-99); Magnesium 2.0 mg/dL (1.6-2.3); Non-African American GFR(CKD) 69 (>60 ml/min/1.73 sqM); Potassium 4.1 mmol/L (3.5-5.1); Sodium 138 mmol/L (137-145)
[2024-12-08 08:52] VITALS: BP 148/65; PULSE 97; RESP 16
[2024-12-08] MEDS: CLOPIDOGREL 75 MG TAB PO SCH (08:55)
--- NOTE | 2024-12-08 11:29 | P.DS ---
Providers Date of admission: 12/06/24 18:22 Expected date of discharge: 12/08/24 Attending physician: Juan Han Consults: 12/06/24 16:22 Consult Physician Routine Consulting Provider: [facility] Consult Reason/Comments: Chest Pain Do you want consulting provider notified?: Yes Primary care physician: Stated None Hospital Course: Discharge Diagnosis: NSTEMI Unstable angina Hypertension Prediabetes with hemoglobin A1c of 6.1%. Leukocytosis, likely reactive secondary to above and resolved High anion gap metabolic acidosis Hospital Course: Patient is a very pleasant 69-year-old male with no reported past medical history, however reports he has not been seen by a medical provider at any time during his adulthood. Patient denies history of smoking, alcohol use, or drug use. He does report having a family history of kidney disease and heart disease, but states he is never had any issues or never required medical care. Patient presented to the emergency department today secondary to reports of chest pain. Upon arrival to our facility, patient underwent evaluation in the emergency department. Vital signs upon arrival show blood pressure 166/102, heart rate 99, respiratory rate 18, temp 98.2 F, and SpO2 of 96% on room air. EKG completed showing normal sinus rhythm at 96 bpm with T wave inversion in leads II, III, aVF and V3 through V6. Chest x-ray completed showing mild hyperinflation otherwise negative for acute cardiopulmonary process. Labs completed and reviewed. CBC showing leukocytosis with WBC count of 11.75. BMP showing high anion gap metabolic acidosis with chloride of 109, bicarb of 17, and anion gap of 12. Blood glucose was 139. Calcium 8.7. Magnesium 1.9. Liver profile unremarkable. Troponin was elevated at 0.087. Patient was started on low intensity heparin infusion for unstable angina and admitted under our services with consultation to cardiology. Troponins were trended resulting at 0.087, 7.600, and 11.300. On 12/07/2024, patient was taken for cardiac catheterization with Dr. Brooks revealing 0% stenosis of left main, 100% chronically occluded RCA, 50 to 60% circumflex stenosis, 40% proximal LAD, and 40 to 50% mid LAD stenosis. Medical management was recommended as cardiology reports chronic small vessel disease. Echocardiogram completed revealing ejection fraction 55 to 60%, no obvious regional wall motion abnormalities, mild TR, and moderate pulm hypertension. Patient free from any other reports of chest pain since completion of cardiac cath. Right wrist cardiac cath access site showing no signs of hematoma or bleeding. Patient cleared from cardiac perspective. He is medically optimized for discharge at this time. Patient being discharged home on aspirin 81 mg daily, atorvastatin 80 mg daily, losartan 25 mg daily, metoprolol 75 mg twice daily, and Plavix 75 mg daily. Patient to follow-up outpatient with PCP in 1 to 2 days and with lab pack chemist in 1 week. Physical exam: Vital signs reviewed and stable. General: Nontoxic, no distress and appears stated age. Derm: Skin warm and dry, normal coloration for ethnicity. Head: Atraumatic, normocephalic and symmetric. Eyes: EOM's intact, no lid lag, and anicteric sclera Mouth: no lip lesions, mucus membranes moist Cardiovascular: regular rate and rhythm with normal S1S2, no murmur, positive posterior tibial pulses bilaterally, and cap refill < 2 seconds. Lungs: Respirations even, regular, and unlabored on room air. Lungs CTA bi laterally, no rhonchi, no rales, no wheezing, and no accessory muscle usage. Abdominal: soft, nontender to palpation, no guarding, no appreciable organomegaly Ext: ROM intact. No gross muscle atrophy, no edema, no contractures Neuro: Speech clear, face symmetrical and CN II-XII grossly intact with no noted focal neuro deficits Psych: Alert and oriented to person, place, time, and situation. Appropriate and pleasant affect. A total of 37 minutes of time were spent preparing this complex discharge summary. Pt was discharged on 12/08/2024 at 11:27 AM. Patient was seen independently by Nurse Practitioner. This document was prepared using [employer] dictation software. Please allow for errors in director of graduate medical education while rare they do occur. Manfred Alfaro NP rendered care for this patient independently, reviewed the findings and plan as documented in the note above. I did not physically speak with or examine the patient on this date. . . Patient Condition at Discharge: Stable Plan - Discharge Summary Discharge Rx Participant: No New Discharge Prescriptions: New Aspirin 81 mg PO DAILY 30 Days #30 tab Atorvastatin [Lipitor] 80 mg PO DAILY 30 Days #30 tab Losartan [Cozaar] 25 mg PO DAILY 30 Days #30 tab Metoprolol Tartrate [Lopressor] 75 mg PO BID 30 Days #60 tablet Clopidogrel [Plavix] 75 mg PO DAILY 30 Days #30 tab No Action No Known Home Medications Discharge Medication List No Known Home Medications 12/06/24 [History] Aspirin 81 mg PO DAILY 30 Days #30 tab 12/08/24 [Rx] Atorvastatin [Lipitor] 80 mg PO DAILY 30 Days #30 tab 12/08/24 [Rx] Clopidogrel [Plavix] 75 mg PO DAILY 30 Days #30 tab 12/08/24 [Rx] Losartan [Cozaar] 25 mg PO DAILY 30 Days #30 tab 12/08/24 [Rx] Metoprolol Tartrate [Lopressor] 75 mg PO BID 30 Days #60 tablet 12/08/24 [Rx] Follow up Appointment(s)/Referral(s): Demetrius Brooks DO [STAFF PHYSICIAN] - 1 Week Ata Jones MD [STAFF PHYSICIAN] - 1-2 Days (PLEASE CALL OFFICE first thing Tuesday morning AND SCHEDULE FIRST AVAILABLE APPOINTMENT YOU WILL NEED TO ESTABLISH CARE WITH A PRIMARY CARE PHYSICIAN AND REQUIRE POST HOSPITALIZATION FOLLOW UP) Patient Instructions/Handouts: Heart Attack (DC) Activity/Diet/Wound Care/Special Instructions: Activity: As tolerated. Take breaks as needed. It is important to keep a heart healthy lifestyle. This can improve your long- term health and decrease your risk for heart attacks. Managing your blood cholesterol, blood pressure, weight, and stress. The importance of regular low impact exercise, walking is a great option. Diet: Heart healthy and carb consistent diet. Avoid salts, or foods with hidden salts such as canned or boxed foods and frozen dinners. Extra salt makes your heart work harder and traps the fluid in your body for longer. Heart Healty Diets also include eating more plants in your diet. Lots of fruits and vegetables, nuts, beans, legumes, fish, whole grains, plant-based oils. Avoid fried foods and animal fats and processed meats Special Instructions: Aspirin and Plavix as anti-platelet therapy - Aspirin and Plavix lessens the chance of heart attack and stroke. It helps prevent blood clots from forming, allowing the blood to flow more easily. Each day, you will take one 81 mg (non-enteric coated) tablet daily. You will be taking aspirin as a lifelong medication. Do not stop unless instructed by your doctor. Statins -A statin medication lowers cholesterol levels in the blood. This helps slow the progression of heart disease. - Please take your statin medication as prescribed by your doctor. -You may be taking one of the following statins: Lipitor (atorvastatin) Beta Blockers: -Beta suzy (metoprolol) Is a medication that protects your heart from stress and can prevent future heart attacks. It can slow your heart rate. Do not stop taking these medicines without talking to your doctor. Your Hgb A1c is also elevated at 6.1%. Recommend following a carb consistent diet avoiding foods high in sugar, white breads, and potatoes. Goal is for hemoglobin A1c to be less than 6%. This can be rechecked by your PCP in 3 months to ensure improvement from dietary/lifestyle changes. Take all other medicines as directed by your doctor. Do not take any extra aspirin or ibuprofen. They can increase your risk of bleeding. Many [id number] drugs contain aspirin. If you are unsure about what the drug contains, check with your pharmacist before taking it. For mild discomfort, you may take plain Tylenol (acetaminophen). Follow dose directions, but do not take more than 4,000 mg of acetaminophen in 24 hours. You will need to follow up with Dr. Jones to establish care with PCP and post hospitalization follow up as soon as possible and cardiology, Dr. Brooks in 1 week. Thank you for allowing us to participate in your care, it was truly a pleasure having you for our patient!!! . Discharge Disposition: HOME SELF-CARE
[2024-12-08] MEDS: METOPROLOL TARTRATE 25 MG TAB PO STA (11:48)
--- NOTE | 2024-12-08 13:34 | P.PN ---
Subjective HISTORY OF PRESENT ILLNESS: This is a 69-year-old male with no significant past medical history. 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 Additionally he has not been to a doctor in quite a few years.. We have been asked to see the patient in consultation for non-STEMI. Patient examined at the bedside. To the hospital with chief complain t of chest discomfort. Patient states he was watching the news yesterday when he began to have chest discomfort. He describes it as a sharp shooting pain right through his chest. He does report he has been having some shortness of breath recently with activity and working in the yard. However he denied any shortness of breath yesterday. He does also report that the ER doctor mentioned to him yesterday that he was diaphoretic in the ER. He is a non-smoker. He denies any drug use or alcohol use. He does report a family history of CAD and states that his brother has had a history of LA and CAD. DIAGNOSTICS: - EKG reveals sinus mechanism with no signs of acute ischemia. - Chest xray COPD. No acute cardiopulmonary process. - Laboratory data: Troponin 0.087. 7.600. 11.300 - Current home cardiac medications include none. - No previous echocardiogram, stress test, or cardiac catheterization available in EMR for review 12/08/2024 Patient is status post cardiac catheterization with Dr. Brooks revealing 0% stenosis of left main, 100% chronically occluded RCA, 50 to 60% circumflex stenosis, 40% proximal LAD, and 40 to 50% mid LAD stenosis. Medical management was recommended and patient likely had small vessel disease. Echocardiogram completed revealing ejection fraction 55 to 60%, no obvious regional wall motion abnormalities, mild TR, and moderate pulm hypertension. Patient currently denies any chest pain or pressure. He denies any shortness of breath. He does report having some palpitations earlier which have resolved. Vital signs are currently stable. PHYSICAL EXAM: VITAL SIGNS: Reviewed. GENERAL: Well-developed in no acute distress. HEENT: Head is normocephalic. Pupils are equal, round. Sclerae anicteric. Mucous membranes of the mouth are moist. Neck supple. No JVD or thyromegaly LUNGS: Respirations even and unlabored. Lungs essentially clear to auscultation bilaterally. HEART: Regular rate and rhythm. S1 and S2 heard. ABDOMEN: Soft. Nondistended. Nontender. EXTREMITIES: Normal range of motion. No clubbing or cyanosis. Peripheral pulses intact. No lower extremity edema NEUROLOGIC: Awake and alert. Oriented x 3. ASSESSMENT: Non-STEMI status postcardiac catheterization as above, medical management recommended Prediabetes, hemoglobin A1c 6.1 Moderate pulm hypertension Hypertension Obesity: BMI 31.2 Family history of CAD PLAN: Continue current cardiac medications including aspirin, Plavix, Lipitor, losartan, and metoprolol Increase metoprolol to 75 mg twice a day Patient is stable for discharge home today Patient to follow-up postdischarge with Dr. Brooks Nurse practitioner note has been reviewed by physician. Signing provider agrees with the documented findings, assessment, and plan of care documented by [employer] ADMINISTRATOR as a scribe. Objective - Vital Signs Vital signs: Vital Signs Temp 98.2 F 12/08/24 08:00 Pulse 97 12/08/24 08:00 Resp 16 12/08/24 08:00 BP 148/65 12/08/24 08:00 Pulse Ox 98 12/08/24 08:00 FiO2 Intake & Output 12/07/24 12/08/24 12/08/24 18:59 06:59 18:59 Intake Total 520 Output Total 400 600 400 Balance 120 -600 -400 Weight 98.5 kg Intake: IV 100 Oral 420 Output: Urine 400 600 400 Other: Voiding Method Toilet Toilet Urinal Urinal # Voids 2 - Labs CBC & Chem 7: 12/08/24 05:55 12/08/24 05:55 Labs: Abnormal Lab Results - Last 24 Hours (Table) 12/08/24 12/08/24 Range/Units 05:55 05:55 RBC 3.65 L (4.40-5.60) 10*6/uL Hgb 11.7 L (13.0-17.0) g/dL Hct 35.4 L (39.6-50.0) % MCH 32.1 H (27.0-32.0) pg Chloride 109 H (98-107) mmol/L Carbon Dioxide 20 L (22-30) mmol/L
--- NOTE | 2024-12-08 14:38 | P.CARDCATH ---
Description of Procedure: PROCEDURES PERFORMED: Left heart catheterization, bilateral coronary angiography, ultrasound guided arterial access INDICATION: Non-STEMI CONSENT:I have discussed the risks, benefits and alternative therapies for the above-mentioned procedure and for both sedation/analgesia as well as necessary blood product administration, if indicated, as they pertain to this patient. The patient has indicated understanding and acceptance of the risks and procedures discussed. PROCEDURE: After the risks, benefits and alternatives of the above mentioned procedure explained in detail with the patient, informed consent was obtained. Patient was taken to the catheterization lab and prepped and draped in usual fashion. Ultrasound guidance was used to assess for arterial access. 1% lidocaine was used to anesthetize the right radial artery. A 6-Barbadian sheath was placed in the right radial artery using modified Seldinger technique and ul trasound guidance. Left coronary angiography was performed with a 5-Barbadian JL 3.5 catheter and right coronary angiography was performed with a 5-Barbadian FR5 catheter in various views. A 5-Barbadian FR5 catheter was inserted into the left ventricle and pressure measurements were obtained. The right radial sheath was removed and a TR band was placed with hemostasis achieved. The patient tolerated the procedure well. Patient was transported back to the post catheterization holding area in stable condition. Conscious Sedation: Patient was monitored under the direct supervision of myself for conscious sedation using Versed and fentanyl for a total duration of 15 minutes HEMODYNAMICS: Aorta: 138/72 LV: 132/5, LVEDP 10 SELECTIVE CORONARY ARTERIOGRAPHY: LEFT MAIN: The left main is a large caliber vessel which bifurcates into the LAD and circumflex. There is no significant stenosis. LEFT ANTERIOR DESCENDING CORONARY ARTERY: LAD is a large caliber vessel which wraps around to the apex. There is diffuse mild to moderate disease with 30 to 40% proximal and mid LAD stenosis. Diagonal 1 is very small caliber with a subtotal occlusion of the proximal segment. Diagonal 2 is small caliber with a proximal 70% stenosis. LEFT CIRCUMFLEX CORONARY ARTERY: Left circumflex is a moderate caliber vessel. OM1 has a proximal 50% and then tandem 60% stenosis. After OM1 there is diffuse 50 to 60% stenosis of the circumflex. There are [id number] collaterals RIGHT CORONARY ARTERY: The right coronary artery is a large caliber vessel which gives off a PDA and PLV branch and is the dominant vessel. There is 100% mid RCA stenosis with diffuse right to right collaterals. FINAL IMPRESSION: 1. Multivessel CAD as described above including 30 to 40% proximal and mid LAD stenosis, 50 to 60% circumflex stenosis, 50 to 60% OM1 stenosis, 100% RCA stenosis as well as small caliber diagonal 1 100% stenosis and diagonal 2 70% stenosis. 2. Normal left sided filling pressures PLAN: 1. Aggressive risk factor modification per most recent ACC/AHA guidelines. 2. Patient with diffuse multivessel CAD and no evidence of ulcerated plaque and may be more of a type II non-STEMI related to hypertension and medical noncompliance. Recommend medical therapy and if continues to have angina may consider further evaluation of circumflex, OM1 or diagonal branch. All of these lesions are at bifurcation lesions with more risk of complications and therefore attempt medical therapy. Treat as an non-STEMI with aspirin and Plavix for 12 months.
[2024-12-08] MEDS ORDERED: METOPROLOL TARTRATE 25 MG TAB PO SCH (21:00)
== END 2024-12-08 13:05 | disposition home or self-care (01) | DRG 281 ==
LOC: EC 12:58 → 3SCARD 18:22
PROVIDERS: ADMIT Student in an Organized Health Care Education/Training Program; ATTEND Student in an Organized Health Care Education/Training Program
PROC: B2111ZZ Fluoroscopy of Multiple Coronary Arteries using Low Osmolar Contrast (ICD-10-PCS; 2024-12-07)
PROC: 4A023N7 Measurement of Cardiac Sampling and Pressure, Left Heart, Percutaneous Approach (ICD-10-PCS; principal; 2024-12-07 12:45)
DX: I21.4 Non-ST elevation (NSTEMI) myocardial infarction (principal); E87.20 Acidosis, unspecified; I27.20 Pulmonary hypertension, unspecified; I10 Essential (primary) hypertension; Z68.31 Body mass index [BMI] 31.0-31.9, adult; D72.829 Elevated white blood cell count, unspecified; R73.03 Prediabetes; E66.9 Obesity, unspecified; I25.10 Atherosclerotic heart disease of native coronary artery without angina pectoris; Z82.49 Family history of ischemic heart disease and other diseases of the circulatory system; Z87.891 Personal history of nicotine dependence; Z79.02 Long term (current) use of antithrombotics/antiplatelets; Z79.899 Other long term (current) drug therapy
CPT/HCPCS: 36415; 71046; 80048; 80053; 80061; 83036; 83735; 84484; 85025; 85027; 85610; 85730; 93005; 93306; 96365; 96366; 96375; 99291